=== PATIENT | female | born 1985 | race Two or more races ===

== ENCOUNTER 2025-05-03 13:34 | Outpatient (AMB) | payer MEDICAID, SELFPAY ==
--- OUTSIDE RECORDS SUMMARY | 2021-06-01 20:00 | XMS_ITS | Continuity of Care Document ---
Author Organization [facility] [place] . Address [address] [place] [id number] Phone Care Team Providers Care Service Observer Chief Name Role Phone John KRAUSE, Arabella Unavailable Unavailable Procedures Procedure Date OFFICE/OUTPATIENT VISIT, [facility] Advance Directives Directive Yes / No Effective Date File Name No Information Encounters Encounter Description Practice Location Reason(s) For Visit Diagnoses Date Provider Providers Copied on Encounter OFFICE/OUTPATI ENT VISIT, NEW [facility], [facility] [address], [place], [id number], tel:[phone] [facility] Office No Information John Bell. [address], [address], [place], [place], [id number], [place]. tel:[phone] Family History Family Member Type Diagnosis Age At Onset No Information Payers Payer name Insurance type Covered democrat ID Authoriza tion(s) No Information Social History Type Description Quantity Date Captured Comments Sex Female Smoking Status No Information Chief Complaint And Reason For Visit No Information History Of Present Illness Encounter Date Complaint History Of Prese nt Illness No Information Instructions Date Instruction Additional Infor mation No Information Assessments Type Assessment Date No Information
--- NOTE | 2025-05-03 13:37 | A.OFFVIS_ITS ---
Vital Signs 05/03/25 13:44 Height 5 ft Weight 105 lb BMI 20.5 BP 104/64 Blood Pressure Location Rt brachial Position Sitting Pulse 100 Pulse Source Pulse Oximeter Pulse Oximetry (%) 100 Oxygen Delivery Method Room Air Intake Visit Reasons: Diarrhea Intake Note: New pt for initial eval of diarrhea. CC; C.O. hx of IBS - D which was previously managed by [facility]. Pt is requesting 2nd opinion as she feels that her current therapy is no longer as effective as it once was. Pt also reports intermittent B/L LQ abd pain. Retail Sales Merchandiser Development Required: No Accompanied by: Self / Same As Patient Allergies No Known Allergies Allergy (Verified 05/03/25 13:37) HPI HPI Diarrhea: Details: 40-year-old female here for initial evaluation of diarrhea. She is referred by [facility] in [place]. PMX Acne Depression with anxiety IBS-D Hemorrhoids Rosacea Chronic anal fissure * SURGICAL HISTORY Anal fistulotomy [place] teeth extraction * ALLERGIES: NKDA * [employer] LABS: none TODAY'S VISIT [facility] Medical History (Updated 05/03/25 @ 14:41 by IVAN Mae) IBS (irritable bowel syndrome) Surgical History (Updated 05/03/25 @ 13:46 by RAFA Shelley) H/O colonoscopy Anal fistula Hx of wisdom tooth extraction Social History Alcohol intake: current Comment: 1/week Patient Tobacco Use Status: Never used Tobacco Substance Use Type: Marijuana Review of Systems Const Denies fatigue, Denies fever(s), Denies night sweats, Denies poor appetite and Denies weight loss Eyes Details: glasses Reports requires corrective lenses ENT Reports Normal hearing present, Denies dental pain, Denies dysphagia, Denies hea ring loss, Denies mouth pain, Denies odynophagia, Denies throat swelling, Denies tongue swelling and Reports other (Dentition adequate) Card Reports no additional complaints Resp Reports no additional complaints GI Details: Denies abdominal pain, Denies melena, Denies bloating, Denies hematochezia, Denies constipation, Denies GI cramping, Denies dysphagia, Denies excessive flatus, Denies early satiety, Denies heartburn, Reports diarrhea, Denies nausea, Denies odynophagia, Denies vomiting and Denies hematemesis Skin/Breast Denies pruritus, Denies lesions, Denies rash and Denies jaundice Neuro Reports Normal hearing present and Denies Abnormal speech present Endo Denies fatigue Aller/Immun Denies throat swelling and Denies tongue swelling Physical Exam Vital Signs: Last Vital Signs Pulse 100 05/03/25 13:44 BP 104/64 05/03/25 13:44 Pulse Ox 100 05/03/25 13:44 Oxygen Delivery Method Room Air 05/03/25 13:44 BMI result Body Mass Index 20.5 Const General: cooperative, no acute distress, well developed and well groomed Nutritional Appearance: well nourished, obese and overweight Orientation/consciousness: oriented to person, oriented to place and oriented to time Limitations: No language barrier, ambulation with cane, ambulation with walker and wheelchair HEENT Head: Yes normocephalic and Yes atraumatic Eyes General: appearance normal, both eyes and all related structures Pupils: Equal, round and reactive pupils present Neck Neck: Yes normal visual inspection and Yes no lymphadenopathy Thyroid: Thyroid normal Resp Effort & Inspection: normal respiratory effort and able to speak in complete sentences Auscultation: clear to auscultation bilaterally Cardio Rate: regular rate Rhythm: regular rhythm Heart sounds: Normal, physiologic split S2 sound present Peripheral pulses: radial pulses present and posterior tibial pulses present GI Inspection: No distended and No Abdominal panniculus present Palpation (GI): Soft to palpation, nontender, no guarding, not rigid, No hepatosplenomegaly present and Hepatosplenomegaly present Percussion: Yes normal to percussion Auscultation: normal bowel sounds Rectal Exam - Female: deferred Skin General skin exam: no rashes or lesions noted, turgor normal, skin not dry, no jaundice, No spider nevi and no striae Rashes: no rashes Nails: normal Neuro General: oriented to person, oriented to place and oriented to time Cranial nerves: Yes Equal, round and reactive pupils present and Yes Normal hearing present Speech: No Abnormal speech present Extrem General: Yes normal to inspection, No clubbing, No cyanosis and No edema Psych Thought process: Normal thought process present and not confabulating Thought content: Normal thought content present Insight: Good insight present (Psych) Judgement: Good judgement present (Psych) Assessment & Plan Assessment & Plan (1) Diarrhea: Code(s): R19.7 - Diarrhea, unspecified Category: Medical (2) Rectal fistula: Code(s): K60.4 - Rectal fistula Category: Medical Plan (prefers to be called Jolene) - The patient is a 40-year-old female (but is non binary) presenting with gastrointestinal issues including anal fissure, diarrhea, and IBS. - Longstanding diarrhea since college, diagnosed as IBS after negative gastrointestinal tests. - Managed previously with dietary changes; intermittent relief achieved. - History of fluctuating anal fissure symptoms since late 2020, initially thought to be hemorrhoids. - Experienced significant side effects from nitroglycerin treatment, switched to calcium channel blockers. - Colonoscopy in 2021 rules out Crohn's, confirms IBS. - Mixed results from surgical intervention on fissures; post-operative complications occurred. - Hormonal contraceptives previously provided symptomatic relief; discontinued in 2022 due to adverse effects. - Temporarily relieved diarrhea with amitriptyline, switched to nortriptyline for better tolerance. - Dietary management attempted with an elimination diet; not consistently effective. - Ankle fracture in September 2022 led to increased diarrhea, impacting mobility. - Migraine issues correlate with gastrointestinal flare-ups, particularly around menstrual cycles. - Labs: Negative lactose and celiac testing. - Tests: Colonoscopy in 2021 ruling out Crohn's disease; findings consistent with IBS. - Diagnostics: Specific information about laboratory and imaging details were not mentioned. We will start with some basic labs to get to the bottom of this and give her a trial of 25 mg amitriptyline. Return office visit in 6 weeks Orders: Orders Comprehensive Met. Panel 05/03/25 R19.7 - Diarrhea, unspecified Transglutaminase IgA 05/03/25 R19.7 - Diarrhea, unspecified Transglutaminase Ab IgG 05/03/25 R19.7 - Diarrhea, unspecified Pancreatic Elastase-1 05/03/25 R19.7 - Diarrhea, unspecified TSH reflex Free T4 05/03/25 R19.7 - Diarrhea, unspecified Complete Blood Count Auto Diff 05/03/25 R19.7 - Diarrhea, unspecified Rast Allergen 05/03/25 R19.7 - Diarrhea, unspecified C Reactive Protein 05/03/25 R19.7 - Diarrhea, unspecified Medications: New amitriptyline 25 mg PO BEDTIME 30 tabs 6RF Coding Level of Care Code New Pt Level 3 (52969) Diagnoses Diarrhea R19.7 Rectal fistula K60.4
[2025-05-03 13:44] VITALS: BP 104/64; PULSE 100; O2SAT 100; BMI 20.5
--- OUTSIDE RECORDS SUMMARY | 2025-05-03 16:34 | XMS_ITS | Clinical Summary ---
Author Organization [employer] Address [address] [place] [address] [address] [place] [address] Care Team Providers Care Shot Tube Machine Tender Name Role Phone PcpSom Unassigned Primary Care Provider U navailable Allergies No known active allergies Medications cetirizine (ZyrTEC) 10 MG tablet Take 10 mg by mouth in the morning. 07/01/2018 Active Ivermectin 1 % cream Apply topically. 07/31/2021 Active LORazepam (Ativan) 0.5 MG tablet Take 0.125 mg by mouth. 07/31/2021 Active amitriptyline (Elavil) 10 MG tablet Take by mouth at bedtime. Active CETIRIZINE HCL PO Take by mouth. Active Levonorgestrel (Liletta, 52 MG,) 20.1 MCG/DAY intrauterine device 52 mg. 05/18/2024 Active Active Problems Problem Noted Date Diagnosed Date Anal fissure 02/02/2025 Closed fracture of distal end of right fibula Encounters Date Type Department Care Team Description 03/20/2025 3:30 PM EDT Office Visit [facility] [address] [place] [phone] Sissy Nicholson LLD 02/02/2025 11:15 AM EDT Office Visit [facility] [address] [place] [phone] Gavino Browne RDH from Last 3 Months Immunizations Immunization Administration Dates Next Due HPV 9-Valent 03/21/2021 Influenza Injectable Quadriv alant Preservative Free IIV4 MDCK 09/07/2018 Influenza injectable quadrivalent preservative f ree 08/26/2022,04/07/2019 Social History Tobacco Use Types Packs/Day Years Used Date Smoking Tobacco: Never Smokeless Tobacco: Never Tobacco Cessation:Counseling Given: Not Answered Alcohol Use Standard Drinks/Week Comments Yes 1 (1 standard drink = 0.6 oz pur e alcohol) Comments Unknown Sex and Gender Information Value Date Recorded Sex Assigned at Female 08/21/2022 4:20 PM EST Legal Sex Female 5:36 PM EDT Gender Identity Agender 01/08/2023 10:02 AM EDT Sexual Orientation Pansexual 01/08/2023 10 :05 AM EDT Sexual Orientation Queer 01/08/2023 10 :05 AM EDT Last Filed Vital Signs Vital Sign Reading Time Taken Comments Blood Pressure 121/72 03/20/2025 3:34 PM EDT Pulse 90 03/20/2025 3:34 PM EDT Temperature 36.6 C (97.9 F) 03/20/2025 3:34 PM EDT Respiratory Rate - - Oxygen Saturation - - Inhaled Oxygen Concentration - - Weight - - Height - - Body Mass Index - - Plan of Treatment Upcoming Encounters Date Type Department Care Team (Late st Contact Info) Description 05/24/2025 2:00 PM EST Office Visit [facility] [address] [place] [phone] Sissy Nicholson LLD [address] [place] [phone] 08/09/2025 1:45 PM EST Office Visit [facility] [address] [place] [phone] Gavino Browne, [facility] [address] [place] [address] Health Maintenance Due Date Last Done Comments Depression Screening 1985 HIV Screening 1985 SDOH Screening 1985 Disability Screening 1985 Alcohol/Substance Use Screening 1997 Family Planning (PISQ) 02/05/2000 Hepatitis C Screening 2003 Hepatitis B Vaccines (1 of 3 - 19+ 3-dose series) 02/05/2004 Pap Smear 2006 Cervical Cancer Screening 2015 HPV/Cotest 2015 HPV Vaccines (2 - 3-dose series) 04/18/2021 03/21/2021 Dental X-Ray: Bitewings 09/29/2024 09/29/19 24, 08/24/2022, 07/09/2020, Additional history exists Mammogram 2025 Influenza Vaccine (#1) 2025 , 08/26/2022, 04/07/2019, Additional history exists Dental Prophylaxis 08/06/2025 02/02/2025, 0 09/29/2023, 08/24/2022, Additional history exists Dental Oral Exam 09/18/2025 03/20/2025, , 01/09/2021, Additional history exists Tobacco Screening 02/02/2026 02/02/2025 Dental X-Ray: Full Mouth 09/29/2026 09/29/2023, 10/04 DTaP/Tdap/Td Vaccines (2 - Td or Tdap) 06/16/2033 06/16/2023 Zoster Vaccines (1 of 2) 2035 RSV Patients and Patients Aged 60 years or older (1 - 1-dose 75+ series) 02/05/2060 COVID-19 Vaccine Completed 07/11/2024, 10/2022, 03/19/2022, Additional history exists HIB Vaccines Aged Out No longer eligi ble based on patient's age to complete this topic Hepatitis A Vaccines Aged Out No long er eligible based on patient's age to complete this topic IPV Vaccines Aged Out No longer eligi ble based on patient's age to complete this topic Meningococcal B Vaccine Aged Out No l onger eligible based on patient's age to complete this topic Meningococcal Vaccine Aged Out No christina amanda eligible based on patient's age to complete this topic Pneumococcal Vaccine: Pediatrics (0 to 5 Years) and At-Risk Patients (6 to 49) Years Aged Out No longer eligible based on patient's age to complete this topic RSV under 20 months Aged Out No longe r eligible based on patient's age to complete this topic Rotavirus Vaccines Aged Out No longer eligible based on patient's age to complete this topic Procedures Procedure Name Priority Date/Time Associated Diagnosis Comments CASE PRESENTATION, DETAILED AND EXTENSIVE TREATMENT PLANNING Routine 03/20/2025 3:30 PM EDT COMPREHENSIVE ORAL EVALUATION - NEW OR ESTABLISHED PATIENT Routine 03/20/2025 3:30 PM EDT PROPHYLAXIS - ADULT Routine 02/02/2025 1 1:15 AM EDT INTRAORAL - COMPLETE SERIES OF RADIOGRAPHIC IMAGES Routine 09/29/2023 2:00 PM EDT from Last 3 Months or Most Recently Relevant to Health Maintenance Insurance [facility] STAND ADULT DENTAL-[facility] MEDICAID STAND ADULT DENTAL - [facility] FULL (MEDICAID) Care Teams Shot Tube Machine Tender Relationship Specialty Start Date End Date PcpSom Unassigned PCP - General Family Medicine 11/02/22
--- OUTSIDE RECORDS SUMMARY | 2025-05-03 16:34 | XMS_ITS | Encounter Summary ---
Author Organization [employer] Address [address] [place] [id number] Care Team Providers Care Retail Team Leader Name Role Phone PcpSom Unassigned Primary Care Provider U ena Encounter Details Date Type Department Care Team (Latest Contact Info) Description 07/12/2018 Abstract [facility] Dental, Provider, DDS Social History Tobacco Use Types Packs/Day Years Used Date Smoking Tobacco: Never Assessed Comments Unknown Sex and Gender Information Value Date Recorded Sex Assigned at Female 08/21/2022 4:20 PM EST Legal Sex Female 5:36 PM EDT Gender Identity Agender 01/08/2023 10:02 AM EDT Sexual Orientation Pansexual 01/08/2023 10 :05 AM EDT Sexual Orientation Queer 01/08/2023 10 :05 AM EDT documented as of this encounter Plan of Treatment Upcoming Encounters Date Type Department Care Team (Late st Contact Info) Description 05/24/2025 2:00 PM EST Office Visit [facility] [address] [place] [phone] Sissy Nicholson LLD [address] [place] [address] 08/09/2025 1:45 PM EST Office Visit [facility] [address] [place] [phone] Gavino Browne [facility] [address] [place] [address] documented as of this encounter Visit Diagnoses Not on filedocumented in this encounter Care Teams Retail Team Leader Relationship Specialty Start Date End Date Som Brower Unassigned PCP - General Family Medicine 11/02/22 documented as of this encounter
--- OUTSIDE RECORDS SUMMARY | 2025-05-03 16:34 | XMS_ITS | Encounter Summary ---
Author Organization [employer] [facility] Address [address] [place] [id number] Care Team Providers Care Credit And Collection Manager Name Role Phone Som Brower Unassigned Primary Care Provider Lindy sutherland Encounter Details Date Type Department Care Team (Latest Contact Info) Description 07/09/2020 Abstract [facility] Dental, Provider, DDS Social [...] Description 05/24/2025 2:00 PM EST Office Visit [facility] [address] [place] [phone] Sissy Nicholson LLD [address] [place] [address] 08/09/2025 1:45 PM EST Office Visit [facility] [address] [place] [phone] Gavino Browne [facility] [address] [place] [address] documented as of this encounter Visit Diagnoses Not on filedocumented in this encounter Care Teams Credit And Collection Manager Relationship Specialty Start Date End Date Som Brower Unassigned PCP - General Family Medicine 11/02/22 documented as of this encounter
--- OUTSIDE RECORDS SUMMARY | 2025-05-03 16:34 | XMS_ITS | Clinical Summary ---
Author Organization [facility] Address [address] [place] [address] Care Team Providers Care Hose Suspender Cutter Name Role Phone Bayron Malave Primary Care Provider [phone] Allergies No known active allergies Medications cetirizine (ZyrTEC) 10 mg tablet Take 10 mg by mouth daily. Active Active Problems No known active problems Social History Tobacco Use Types Packs/Day Years Used Date Smoking Tobacco: Unknown Tobacco Cessation:Counseling Given: Not Answered Comments Unknown Sex and Gender Information Value Date Recorded Sex Assigned at Female 07/06/2022 8:39 PM EST Legal Sex Female 12:56 PM EST Gender Identity Non-binary 07/06/2022 8:39 PM EST Sexual Orientation Bisexual 07/06/2022 8: 39 PM EST Last Filed Vital Signs Vital Sign Reading Time Taken Comments Blood Pressure 105/66 07/07/2022 3:30 PM EST Pulse 85 07/07/2022 3:30 PM EST Temperature 36.9 C (98.4 F) 07/07/2022 3:30 PM EST Respiratory Rate 16 07/07/2022 3:30 PM EST Oxygen Saturation - - Inhaled Oxygen Concentration - - Weight 50.1 kg (110 lb 8 oz) 07/07/2022 3:30 PM EST Height - - Body Mass Index - - Plan of Treatment Health Maintenance Due Date Last Done Comments Cervical Cancer Screening 1985 HIV Screening 1985 HPV and Pap Smear 1985 Hepatitis C Screening 1985 Pap Smear 1985 Varicella Vaccines (1 of 2 - 13+ 2-dose series) 1998 Hepatitis B Vaccines (1 of 3 - 19+ 3-dose series) 02/05/2004 DTaP,Tdap,and Td Vaccines (1 - Tdap) 2007 Alcohol/Substance Use Screening 07/05/2024 Depression Screening and Follow-Up 07/05/2024 Social Drivers of Health Annual Screening 07/05/2024 Mammogram 2025 COVID-19 Vaccine (1 - 2024-2 6 season) 2025 Influenza Vaccine (#1) 2025 9, 09/07/2018 RSV Vaccine (60+ years old and patients) (1 - 1-dose 75+ series) 02/05/2060 Pneumococcal Vaccine: Pediatric (0-5 Years) and At-Risk Patients (6-50 Years) Aged Out No longer eligible based on patient's age to complete this topic Insurance [employer] [id number] [facility] Care Teams Hose Suspender Cutter Relationship Specialty Start Date End Date Bayron Malave [address] [place] [address] PCP - General Internal Medicine 06/02/22
--- OUTSIDE RECORDS SUMMARY | 2025-05-03 16:34 | XMS_ITS | Data Portability ---
Author Organization [facility] - Devon Tilley [facility], JUAN ALBEROT - [place] [facility] Address [address] [place] [address] Care Team Providers Care Warehouse Receiving Supervisor Name Role Phone FITZ GODDARD Primary Care Provider Assessment No assessment recorded. Plan of Treatment Reminders Order Date Submit Date Provider Last Modified By Organization Details Last Modified Time Details Appointments None recorded. Lab None recorded. Referral physical therapist referral - Gucci Minor - ankle ROM, strengtheni ng, gait training, propriocept ion 2024 025 [facility] (Physical Therapy), [address] [place] [address], [address], 5 12:41:56 Procedures None recorded. Surgeries None recorded. Imaging XR, ankle, 3 or more view 2024 025 [email or web address] [facility], [address], [place], [address], 5 15:15:50 XR, ankle, 3 or more view - room 113 3V Right ankle 2024 025 [email or web address] [facility], [address], [address], [place], [address], 5 12:41:56 XR, ankle, 3 or more view 2024 025 [email or web address] [facility], [address], [address], [place], [address], 15:34:54 Medication Orders None recorded. Patient TargetsNo targets recorded. Patient Instructions Encounter Date Encounter Id Patient Instructions Last Modified By Organization Details Last Modified Time 09/20/2024 [id number] application of cast, short leg walking cast* [email or web address] Not available 09/20/2024 12:20:48 Reason for Referral Physical Therapist Referral for Closed fracture of distal fibula Gucci Minor - ankle ROM, strengthening, gait training, proprioception Referring Physician: Tyra Tinsley, Orthopedic Surgery, Encounter Date: 10/27/2024 Problems Name Problem SNOMED Code Status Onset Date Resolution Date Notes Provider Name and Address Organization Details Recorded Time Closed fracture of distal right fibula 58626466031193 106 Active 2024 Tyra Tinsley PA-C [address], [place], [address] , [facility] 12:35:58 Closed fracture of distal fibula 609849425 Active 2024 Tyra Tinsley PA-C [address], [place], [address] , [facility] 12:36:06 Problem Notes None recorded. Procedures Surgical History Date Name Laterality Status Provider Name and Address Organization Details Recorded Time 5 Splint_Short Leg Fiberglass_1 1+ completed STACI JEFFERSON [facility] 10/02/2024 13:11:40 5 Cast Removal completed STACICOLBY JEFFERSON [facility] 10/02/2024 13:10:34 Imaging Results None recorded. Procedure Notes None recorded. Medical Equipment None Reported. Allergies No known drug allergies Medications Name Sig Start Date Stop Date Status Note LastModified by Organization Details LastModified Time nortriptyline 25 mg capsule active Not Available Not Availabl e Not Available amitriptyline 25 mg tablet active Not Available Not Available Not Available lorazepam 0.5 mg tablet active Not Available Not Available No t Available amitriptyline 10 mg tablet active Not Available Not Available Not Available nortriptyline 10 mg capsule active Not Available Not Availabl e Not Available oxycodone 5 mg tablet active Not Available Not Available Not Available EnilloRing 0.12 mg-0.015 mg/24 hr vaginal ring active Not Available Not Availa ble Not Available Vitals Date Recorded Body height Body mass index (BMI) Body weight Provider Name and Address Organization Details Last Updated DateTime 10/27/2024 152.4 cm 20.5 kg/m2 09422.2 g Annie Jacomeudreau [facility] 10/27/2024 15:23:34 Date Recorded Body height Body mass index (BMI) Body weight Provider Name and Address Organization Details Last Updated DateTime 11/29/2024 152.4 cm 20.5 kg/m2 09050.2 g SABINO BELLE [facility] 11/29/2024 11:42:59 Social History None recorded. Functional Status None recorded. Mental Status None recorded. Family History Nothing Reported. Medical History No medical history recorded. Gynecological HistoryNo gynecological history recorded. Obstetrics History GPAL:G 0 P 0 0 0 0 Past Encounters Encounter ID Performer Location Encounter Start Date Encounter Closed Date Diagnosis/Indication Diagnosis SNOMED-CT Code Diagnosis ICD10 Code Diagnosis IMO Codes Diagnosis Note [id number] AREN Delgado - [facility] [address] [place] [place] [address] 09/20/2024 10:23:05 10/04/2024 08:47:35 Closed fracture of distal right fibula 7032141685 [id number] S82.831A [id number] Tyra Tinsley PA-C [facility] ALBERTO [facility] [address] [place] [address] 10/02/2024 11:57:48 10/02/2024 13:12:03 Closed fracture of fibula 901520021 S82.831A [id number] AREN DelgadoA - [facility] [address] [place] [address] 10/06/2024 13:15:32 10/17/2024 15:34:53 Closed fracture of distal fibula 773036763 S82.831D [id number] Tyra Tinsley PA-C [facility]ERT[facility] [address] [place] [address] 10/27/2024 14:59:39 11/03/2024 12:41:56 Ankle pain 257338442 M25.571 49800024 Closed fra cture of distal fibula 609498658 S82.831D [id number] Tyra Tinsley PA-C [facility] [address] [place] [address] 11/29/2024 11:20:55 12/06/2024 15:15:50 Ankle pain 167721362 M25.571 74198668 Edema of l ower extremity 568194177 R60.0 10785 Closed fra cture of distal fibula 102644669 S82.831D [id number] Health Concerns Section Related Observation LastModified by Organization Detai ls LastModified Time None Recorded Concern Status LastModified by Organization Details LastModified Time None Recorded Advance Directives Directive None Recorded Payers Insurance Date Sequence Insurance Name Policy Number Policy Perez Covered Member ID Perez Member ID Guarantor Name 01/09/2025 1 [facility] - DOS ON OR AFTER 2022 - [facility] (MEDICAID REPLACEMENT - HMO) Lynne Garner [id number] Lynne Garner Notes Date Note Type Note Provider Name and Address Organization Details Recorded Time 09/20/2024 text/html I am seeing this patient under the supervision of Dr. Noble, who was available but who did not see the patient. HPI: Patient is a 39-year-old female visiting today in regards to a right ankle injury sustained on 09/18/2024. She fell on the stairs. She was seen at [facility]. X-rays showed a distal fibula fracture. She was placed into a short cam boot. Denies any previous history of injury to the right ankle. Denies any interval trauma. Denies any fevers, chills, or paresthesias. PFMSH, Meds and ROS reviewed, updated and signed by me, and is located in the patient's chart. PHYSICAL EXAMINATION: The patient is well appearing and in no apparent distress. Alert and oriented x 3. Examination of the right ankle reveals mild to moderate edema with no evidence of erythema or warmth. Tender to palpation over the distal fibula. Nontender to palpation elsewhere about the foot or ankle. Tolerates ankle sagittal plane range of motion. Calf soft, nontender. Sensation intact light touch in the right lower extremity. RADIOLOGY: X-rays were independently reviewed and outside facility. 3 views of the right ankle reveal a nondisplaced distal fibula fracture, Live B IMPRESSION: Right distal fibula fracture PLAN: Discussed the findings and situation with the patient today. She seems to have stable fracture today. We discussed conservative treatment. She was placed into a short leg walking cast. She was given a prescription for a knee scooter to use as needed. She will follow-up in 2 weeks for recheck and repeat x-rays with eventual transition to a tall cam boot at that time. Call with questions or concerns. The patient is ambulatory, but has weakness and/or instability of their extremity which requires stabilization from this semi-rigid/rigid orthosis to improve their function. Verbal and written instructions for the use and application of this item were given. Patient was instructed that should the brace result in increased pain, decreased sensation, increased swelling or an overall worsening of their medical condition, to please contact our office immediately. Tyra Tinsley PA-C [address] [place] [address] [address] [facility], [place], [address], [facility] 09/21/2024 16:33:20 10/06/2024 text/html I am seeing this patient under the supervision of Dr. Noble, who was available but who did not see the patient. HPI: Patient is a 39-year-old female presenting today for re-check in regards to a right ankle injury sustained on 09/18/2024. She fell on the stairs. She was seen at [facility]. X-rays showed a distal fibula fracture. She was last seen by myself on 09/20/2024. She was placed into a short leg walking cast. She came back on Wednesday and transition from her cast to a tall cam boot. Has been doing well with this. Has been nonweightbearing. Denies any interval trauma. Denies any fevers, chills, or paresthesias. PFMSH, Meds and ROS reviewed, updated and signed by me, and is located in the patient's chart.PHYSICAL EXAMINATION: The patient is well appearing and in no apparent distress. Alert and oriented x 3. Examination of the right ankle reveals mild edema with no evidence of erythema or warmth. Somewhat tender to palpation over the distal fibula. Nontender to palpation elsewhere about the foot or ankle. Tolerates ankle sagittal plane range of motion. Calf soft, nontender. Sensation intact light touch in the right lower extremity. RADIOLOGY: X-rays were ordered, obtained, reviewed today in our office. 3 views of the right ankle reveal a nondisplaced distal fibula fracture, Live B IMPRESSION: Right distal fibula fracture PLAN: Discussed the findings and situation with the patient today. Recommended continuing with conservative treatment for this. She will continue with her cam boot. She may work on ankle range of motion as tolerated. Continue with elevation as needed for swelling. She was given a prescription for an even up shoe lift. Follow-up in 3 weeks. The patient is ambulatory, but has weakness and/or instability of their extremity which requires stabilization from this semi-rigid/rigid orthosis to improve their function. Verbal and written instructions for the use and application of this item were given. Patient was instructed that should the brace result in increased pain, decreased sensation, increased swelling or an overall worsening of their medical condition, to please contact our office immediately. Tyra Tinsley PA-C [address] [place] [address] [address], [place], [address], [facility] 10/06/2024 15:40:34 10/27/2024 text/html I am seeing this patient under the supervision of Dr. Noble, who was available but who did not see the patient. HPI: Patient is a 39-year-old female presenting today for re-check in regards to a right ankle injury sustained on 09/18/2024. She fell on the stairs. She was seen at [facility]. X-rays showed a distal fibula fracture. She was last seen by myself on 10/06/2024. She was placed into a tall cam boot. Has been doing well with this. Has been able to do some weightbearing in her boot. Denies any interval trauma. Denies any fevers, chills, or paresthesias. PFMSH, Meds and ROS reviewed, updated and signed by me, and is located in the patient's chart.PHYSICAL EXAMINATION: The patient is well appearing and in no apparent distress. Alert and oriented x 3. Examination of the right ankle reveals mild edema with no evidence of erythema or warmth. Somewhat tender to palpation over the distal fibula. Nontender to palpation elsewhere about the foot or ankle. Tolerates ankle sagittal plane range of motion. Calf soft, nontender. Sensation intact light touch in the right lower extremity. RADIOLOGY: X-rays were ordered, obtained, reviewed today in our office. 3 views of the right ankle reveal a nondisplaced distal fibula fracture, Live B. Good interval callus formation noted. IMPRESSION: Right distal fibula fracture PLAN: Discussed the findings and situation with the patient today. Recommended continuing with conservative treatment for this. She will continue with her cam boot. She may transition to an ankle brace as tolerated and she was given a prescription for this today. She was given a prescription for physical therapy. Follow-up in 4 weeks. The patient is ambulatory, but has weakness and/or instability of their extremity which requires stabilization from this semi-rigid/rigid orthosis to improve their function. Verbal and written instructions for the use and application of this item were given. Patient was instructed that should the brace result in increased pain, decreased sensation, increased swelling or an overall worsening of their medical condition, to please contact our office immediately. Tyra Tinsley PA-C [address] [facility] [address] [facility], [place], [address], [facility] 10/30/2024 14:28:51 11/29/2024 text/html I am seeing this patient under the supervision of Dr. Noble, who was available but who did not see the patient. HPI: Patient is a 39-year-old female presenting today for re-check in regards to a right ankle injury sustained on 09/18/2024. She fell on the stairs. She was seen at [facility]. X-rays showed a distal fibula fracture. She was last seen by myself on 10/27/2024. She was given a prescription for an ankle brace. Doing well in this regard. Continues to work with physical therapy. Feels that she is improving. Denies any interval trauma. Denies any fevers, chills, or paresthesias. PFMSH, Meds and ROS reviewed, updated and signed by me, and is located in the patient's chart.PHYSICAL EXAMINATION: The patient is well appearing and in no apparent distress. Alert and oriented x 3. Examination of the right ankle reveals mild edema with no evidence of erythema or warmth. Slightly tender to palpation over the distal fibula. Nontender to palpation elsewhere about the foot or ankle. Good ankle range of motion in all planes. Calf soft, nontender. Sensation intact light touch in the right lower extremity. RADIOLOGY: X-rays were ordered, obtained, reviewed today in our office. 3 views of the right ankle reveal a nondisplaced distal fibula fracture, Live B. Good interval callus formation noted. IMPRESSION: Right distal fibula fracture PLAN: Discussed the findings and situation with the patient today. Recommended continuing with conservative treatment for this. She will continue with her ankle brace and may wean from this as tolerated. She will continue with physical therapy. She was given a prescription for compression socks. Will follow-up in 4 to 6 weeks. Call with questions or concerns. The patient is ambulatory, but has weakness and/or instability of their extremity which requires stabilization from this semi-rigid/rigid orthosis to improve their function. Verbal and written instructions for the use and application of this item were given. Patient was instructed that should the brace result in increased pain, decreased sensation, increased swelling or an overall worsening of their medical condition, to please contact our office immediately. Tyra Tinsley PA-C [address] [facility] [address], [place], [address], [facility] 11/29/2024 12:32:22 OBGyn Episode No OBEpisode recorded.
--- OUTSIDE RECORDS SUMMARY | 2025-05-03 16:34 | XMS_ITS ---
Author Name [facility] Organization Unknown Encounters Encounter Type Encounter Reason Primary Diagnosis Location Date Ambulatory [facility] 02/08/2025 Care Team Organization Name Specialty Phone Email Start Date End Da [facility] 02/11
--- OUTSIDE RECORDS SUMMARY | 2025-05-03 16:34 | XMS_ITS | Clinical Summary ---
Author Organization [facility] Address [address] [place] [address] Phone Care Team Providers Care [employer] Tube Bender Name Role Phone Bayron Malave Primary Care Provider Allergies No known active allergies Medications cetirizine (ZYRTEC) 10 MG tablet Take 10 mg by mouth daily. Active ivermectin (SOOLANTRA) 1 % 1 Active hydrocortisone-p ramoxine (PROCTOFOAM-HC) rectal foamIndications: Hemorrhoids, unspecified hemorrhoid type Place 1 applicator rectally 2 (two) times a day. Proctofoam HC 1 application SD QD 10 g 2 Active ELURYNG 0.12-0.015 mg/24 hr vaginal ringIndications: Dysmenorrhea,Dys pareunia in female INSERT VAGINALLY AND LEAVE IN PLACE FOR 4 CONSECUTIVE WEEKS THEN REMOVE AND REPLACE WITH NEW RING IMMEDIATELY 3 each 1 3 Active Active Problems No known active problems Encounters Date Type Department Care Team Description [facility] External System Generated Encounter [address] [place] [address] Unknown, MD Giancarlo from Last 3 Months Immunizations Immunization Administration Dates Next Due HPV9 03/21/2021 Influenza Quadrivalent MDCK Preservative Free IM 09/07/2018 Influenza Quadrivalent Preservative Free IM 10/0 10/2018 Social History Tobacco Use Types Packs/Day Years Used Date Smoking Tobacco: Never Smokeless Tobacco: Never Alcohol Use Standard Drinks/Week Comments Yes 0 (1 standard drink = 0.6 oz pur e alcohol) Education Answer Date Recorded Are you interested in more education? Not on ros e 10/31/2022 Are you concerned about learning? Not on file 10/31/2022 No 10/31/2022 No 10/31/2022 Digital Access Answer Date Recorded No 11/29/2022 No 11/29/2022 No 11/29/2022 Reliable internet access at home? Not on file 11/29/2022 Device with a working camera? Not on file Comments No Sex and Gender Information Value Date Recorded Sex Assigned at Not on file Legal Sex Female 9:40 AM EST Gender Identity Not on file Sexual Orientation Not on file Last Filed Vital Signs Vital Sign Reading Time Taken Comments Blood Pressure 102/64 07/10/2021 3:47 PM EST Pulse - - Temperature - - Respiratory Rate - - Oxygen Saturation - - Inhaled Oxygen Concentration - - Weight 50.3 kg (111 lb) 07/10/2021 3:47 PM EST Height 152.4 cm (5') 07/10/2021 3:47 PM EST Body Mass Index 21.68 07/10/2021 3:47 PM EST Plan of Treatment Health Maintenance Due Date Last Done Comments DEPRESSION SCREENING 1997 HIV ONE-TIME SCREENING (18-6 5 YEARS) 2003 INFLUENZA VACCINE (#1) 2025 , 04/07/2019, 09/07/2018 MAMMOGRAM 2025 COVID-19 VACCINE (2024-2 6 season) 2025 05/13/2021, 10/23/2020, 10/02/2020 PAP SMEAR 07/09/2026 07/09/2023 Adult Td,Tdap Booster 06/16/2033 06/16/2023 HEPATITIS C SCREENING Completed 08/30/2020 SMOKING STATUS SCREENING (On ce After 26 Yrs) Completed 07/10/2021 HEPATITIS A VACCINES Aged Out No long er eligible based on patient's age to complete this topic HIB VACCINES Aged Out No longer eligi ble based on patient's age to complete this topic MENINGOCOCCAL VACCINES (ACWY) Aged Out No longer eligible based on patient's age to complete this topic MENINGOCOCCAL VACCINES (B) Aged Out N o longer eligible based on patient's age to complete this topic PNEUMOCOCCAL VACCINES (0-49 years) Aged Out No longer eligible b ased on patient's age to complete this topic Medical Devices Not on file Insurance P ACO P ACO ACO MGP ACO P ACO MGP ACO Care Teams [employer] Tube Bender Relationship Specialty Start Date End Date Bayron Malave PA [email or web address] PCP - General Unknown Provider Specialty 06/23/22 Additional Source Comments The information contained in this document represents components of the legal health record. It is not the complete legal health record.[facility]
--- OUTSIDE RECORDS SUMMARY | 2025-05-03 16:34 | XMS_ITS | Encounter Summary ---
Author Organization [employer] [facility] Address [address] [place] [address] Care Team Providers Care Bunch Maker Hand Name Role Phone Som Brower Unassigned Primary Care Provider Lindy sutherland Encounter Details Date Type Department Care Team (Latest Contact Info) Description 01/09/2021 Abstract [facility] CONVERSIONS Dental, Provider, DDS Social [...] Description 05/24/2025 2:00 PM EST Office Visit [facility] [address] [place] [phone] Sissy Nicholson LLD [address] [place] [address] 08/09/2025 1:45 PM EST Office Visit [facility] [address] [place] [phone] Gavino Browne [facility] [address] [place] [address] documented as of this encounter Visit Diagnoses Not on filedocumented in this encounter Care Teams Bunch Maker Hand Relationship Specialty Start Date End Date Som Brower Unassigned PCP - General Family Medicine 11/02/22 documented as of this encounter
== END 2025-05-03 14:53 | disposition home or self-care (01) ==
LOC: HO.HGI 13:34
PROVIDERS: PCP Physician Assistant Medical; Visit Provider Nurse Practitioner
DX: R19.7 Diarrhea, unspecified (principal); K60.40 Rectal fistula, unspecified
CPT/HCPCS: 99203

== ENCOUNTER → 2025-05-03 13:34 | Outpatient (BNVA) | payer MEDICAID, SELFPAY | PROVIDERS: PCP Physician Assistant Medical; Visit Provider Nurse Practitioner | DX: R19.7 Diarrhea, unspecified (principal); K60.40 Rectal fistula, unspecified | CPT/HCPCS: 99202 ==